=== PATIENT | female | born 1990 | race Two or more races ===

== ENCOUNTER 2022-09-28 11:30 | Inpatient (IN) | payer OTHER ==
[~2022-09-28] VITALS: Ht 154.9 cm; Wt 82.1 kg
[~2022-09-28 11:30] MED LIST: CAMBIA50 MG; NORFLEX100MG PO; RELAGESIC TABL1 EACH PO; ULTRACET
[2022-10-13] MEDS ORDERED: PRENATABS FA T1 EACH PO (10:09)
== END 2022-10-15 12:40 | disposition home or self-care (01) | DRG 807 ==
LOC: LDR 10-13 04:57 → OB/GYN 10-13 13:43 → SURH 10-17 11:12
PROVIDERS: ADMIT Obstetrics & Gynecology; ATTEND Obstetrics & Gynecology
PROC: 10E0XZZ Delivery of Products of Conception, External Approach (ICD-10-PCS; principal; 2022-10-13)
PROC: 0UQG7ZZ Repair Vagina, Via Natural or Artificial Opening (ICD-10-PCS; 2022-10-13)
PROC: 4A1HXCZ Monitoring of Products of Conception, Cardiac Rate, External Approach (ICD-10-PCS; 2022-10-13)
DX: O71.4 Obstetric high vaginal laceration alone (principal); Z37.0 Single live birth; Z3A.39 39 weeks gestation of pregnancy; Z20.822 Contact with and (suspected) exposure to COVID-19

== ENCOUNTER 2022-10-11 11:10 | Outpatient (CLI) | payer OTHER | END 2022-10-11 12:24 | disposition home or self-care (01) | LOC: NST 11:10 | PROVIDERS: ATTEND Obstetrics & Gynecology Gynecology | DX: Z34.83 Encounter for supervision of other normal pregnancy, third trimester (principal) ==

== ENCOUNTER 2024-05-26 21:20 | Emergency (ER) | payer OTHER ==
[~2024-05-26] VITALS: Ht 154.9 cm; Wt 77.1 kg
[~2024-05-26 21:20] MED LIST changes: +PRENATABS FA T1 EACH PO
[2024-05-26] MEDS ORDERED: PROMETRIUM200 MG PO (21:45)
[2024-05-26 23:46] LABS: HEMATOCRIT 39.3 % (36.0-45.00); HEMOGLOBIN 13.2 g/dL (12.0-15.00); MEAN CELL VOLUME 94.9 fL (80.00-100.00); MEAN CORPUSCULAR HGB CONC 33.7 g/dl (32.0-36.0); PLATELET COUNT 264 K/uL (150-450); RED BLOOD COUNT 4.14 M/uL (4.00-6.00); RED CELL DISTRIBUTION WIDTH 13.1 % (11.5-14.5)
[2024-05-27 00:42] LABS: PH,URINE 5.5 (5.0-8.0); URINE APPEARANCE Clear; URINE BILIRRUBIN Negative (NEGATIVE); URINE BLOOD Large; URINE COLOR Yellow; URINE GLUCOSE Negative (NEGATIVE); URINE KETONE Negative (NEGATIVE); URINE LEUKOCYTE Trace; URINE NITRATE Negative; URINE PROTEIN Negative (NEGATIVE); URINE UROBILINOGEN 0.2 E.U./dl
[2024-05-27 00:46] LABS: URINE BACTERIA 25.7 uL (0.0-1933); URINE EPITHELIAL CELLS 4.9 uL (0.0-38.8); URINE RBC 872.1 uL (0.0-20.8)
== END 2024-05-27 00:01 | disposition home or self-care (01) ==
LOC: ER 21:22
PROVIDERS: General Practice
DX: O20.8 Other hemorrhage in early pregnancy (principal); Z3A.10 10 weeks gestation of pregnancy; E03.8 Other specified hypothyroidism